=== PATIENT | female | born 1965 | race Caucasian/White ===

== ENCOUNTER 2016-12-15 12:34 | Emergency (ER) | payer OTHER ==
[~2016-12-15] VITALS: Ht 154.9 cm; Wt 66.7 kg
[2016-12-15] MEDS ORDERED: HYDROCODONE/APAP 10-325 MG TABLET PO ONE (12:45)
[2016-12-15] MEDS ORDERED: HYDROCODONE/APAP 10-325 MG TABLET ONE (13:01)
--- NOTE | 2016-12-15 13:49 | NUR ---
pt was evaluated by dr Ramirez. pt was d/c to home. d/c instructions given to the pt. gait is stable. no s/s of distress.
[2016-12-15 13:53] VITALS: BP 129/77
== END 2016-12-15 13:54 | disposition home or self-care (01) ==
LOC: ER 12:34
DX: S30.0XXA Contusion of lower back and pelvis, initial encounter (principal); S60.211A Contusion of right wrist, initial encounter; M54.2 Cervicalgia; G43.909 Migraine, unspecified, not intractable, without status migrainosus; W18.30XA Fall on same level, unspecified, initial encounter; Y93.89 Activity, other specified; Y99.8 Other external cause status; Y92.89 Other specified places as the place of occurrence of the external cause
CPT/HCPCS: 72040; 72170; 73130; 99284; A4663